=== PATIENT | male | born 1960 | race Hispanic/Latino ===

== ENCOUNTER 2018-01-30 10:20 | Emergency (ER) | payer OTHER ==
[2018-01-30 11:11] LABS: #Basophils 0.1 thou/uL (0.0-0.2); #Eosinphils 0.1 thou/uL (0.0-0.7); #Lymphocytes 2.7 thou/uL (1.20-3.40); #Monocytes 0.8 thou/uL (0.11-0.59); #Neutrophils 6.3 thou/uL (1.40-6.50); %Basophils 0.7 % (0.0-1.0); %Eosinophils 0.5 % (0.0-10.0); %Lymphocytes 26.9 % (21.0-51.0); %Monocytes 8.1 % (0.0-10.0); %Neutrophils 63.7 % (42.0-75.0); Mean Corpuscular HGB CONC 32.7 g/dL (32.0-36.0); Mean Corpuscular Hemoglobin 33.2 pg (27.0-31.0); Mean Platelet Volume 9.9 fL (7.4-10.4); Platelet Count 166 thou/uL (130-400); RBC Distribution Width 12.7 % (11.5-14.5); Red Blood Cell (RBC) Count 4.53 mill/uL (4.70-6.10); White Blood Cell (WBC) Count 9.9 thou/uL (4.8-10.8)
[2018-01-30 11:26] LABS: ALT (SGPT) 13 U/L (8-55); AST (SGOT) 18 U/L (5-34); Albumin 3.9 g/dL (3.5-5.0); Alkaline Phosphatase 83 U/L (40-150); Anion Gap 14 mmol/L (10-20); BUN (Urea Nitrogen) 20 mg/dL (8.4-25.7); Bilirubin, Total 0.8 mg/dL (0.2-1.2); Calc. Creatinine Clearance 0 mL/min (70-130); Carbon Dioxide 19 mmol/L (22-29); Chloride 111 mmol/L (98-107); Estimated GFR-MDRD Greater than 90; Globulin 2.5 g/dL (2.4-3.5); Glucose 151 mg/dL (70-105); Potassium 3.9 mmol/L (3.5-5.1); Protein, Total 6.4 g/dL (6.0-8.3); Sodium 140 mmol/L (136-145)
[2018-01-30] MEDS ORDERED: Esmolol 2,500 MG/NS 250 ML 250 ML IVPB SCH ×2 (11:30→18:45)
[2018-01-30 11:31] LABS: CKMB 1.8 ng/mL (0-6.6); Troponin I Less than 0.010 ng/mL (< 0.028)
--- NOTE | 2018-01-30 11:47 | RAD ---
CHEST ONE VIEW: History: 58-year-old male with history of chest pain and bilateral lower extremity swelling for three weeks. FINDINGS: Heart size is borderline enlarged. There is some mild vascular congestion. There is some minimal patc hy parenchymal changes in the right lower lobe, nonspecific, this certainly could represent some mini mal right lower lobe pneumonia. If that is a clinical concern, treatment and follow up examination ov er several weeks for clearing is recommended. IMPRESSION: Borderline to mild cardiomegaly with some bilateral vascular congestion. Patchy parenchymal changes i n the right lower lobe, possibly representing some minimal early pneumonia. POS: [facility]
[2018-01-30] MEDS ORDERED: Esmolol 2,500 MG/NS 250 ML 250 ML ONE (16:38)
== END 2018-01-30 22:17 | disposition short-term general hospital (02) ==
LOC: ERS 10:20
DX: I48.91 Unspecified atrial fibrillation (principal); I10 Essential (primary) hypertension; Z79.84 Long term (current) use of oral hypoglycemic drugs; Z79.899 Other long term (current) drug therapy
CPT/HCPCS: 36415; 71045; 80053; 82553; 83735; 83880; 84484; 85025; 93005; 96365; 96366; 96376; 99292